=== PATIENT | female | born 1985 | race Caucasian/White ===

== ENCOUNTER → 2023-05-13 07:01 | Outpatient (REF) | payer BC, SELFPAY | LOC: WDC 07:01 | PROVIDERS: ATTENDING PHYSICIAN Internal Medicine | DX: Z12.31 Encounter for screening mammogram for malignant neoplasm of breast (principal) | CPT/HCPCS: 77063; 77067 ==

== ENCOUNTER → 2024-06-22 15:49 | Outpatient (REF) | payer BC, SELFPAY | LOC: WDC 15:49 | PROVIDERS: ATTENDING PHYSICIAN Internal Medicine | DX: Z12.31 Encounter for screening mammogram for malignant neoplasm of breast (principal) | CPT/HCPCS: 77063; 77067 ==

== ENCOUNTER → 2024-12-18 17:12 | Outpatient (REF) | payer BC, SELFPAY | LOC: RAD 17:12 | PROVIDERS: ATTENDING PHYSICIAN Registered Nurse | DX: M54.12 Radiculopathy, cervical region (principal) | CPT/HCPCS: 72040 ==